=== PATIENT | male | born 1950 | race Caucasian/White ===

== ENCOUNTER 2017-12-25 14:08 | Outpatient (CLI) | payer MEDICARE, BC ==
--- NOTE | 2017-12-25 17:11 | BD ---
BONE DENSITOMETRY USING DEXA: Date: 12/25/17 HISTORY: Postmenopausal screening for osteoporosis. FINDINGS: Lumbar Spine: BMD (g/cm2) L1 0.947 T-Score: -2.1 Z-Score: -1.3 L2 0.976 T-Score: -1.1 Z-Score: -0.2 L3 1.003 T-Score: -0.9 Z-Score: -0.1 L4 0.950 T-Score: -1.3 Z-Score: -0.4 L1-L4 0.942 T-Score: -1.4 Z-Score: -0.5 Femoral Neck: 0.773 T-Score: -1.2 Z-Score: -0.1 Total Femur: 0.955 T-Score: -0.5 Z-Score: 0.1 The 10 year fracture risk for a major osteoporotic fracture is 5.2% and for a hip fracture is 0.7%. IMPRESSION: Osteopenia. POS: DARIUS
== END 2017-12-25 14:09 | disposition home or self-care (01) ==
LOC: BICMAMMO 14:08
PROVIDERS: ATTEND Internal Medicine
DX: M81.0 Age-related osteoporosis without current pathological fracture (principal); M85.89 Other specified disorders of bone density and structure, multiple sites; S32.019A Unspecified fracture of first lumbar vertebra, initial encounter for closed fracture; M19.041 Primary osteoarthritis, right hand
CPT/HCPCS: 77080